=== PATIENT | female | born 1970 | race Caucasian/White ===

== ENCOUNTER 2017-03-15 18:51 | Emergency (ER) | payer SELFPAY ==
[~2017-03-15] VITALS: Ht 160 cm; Wt 63.0 kg
[~2017-03-15 18:51] MED LIST: ACET-141 PO; CEPH-443 PO; CIPR500T4 PO; CYCL-319 PO; DICY10CA60 PO; DOCU-144 PO; HYDR-906 PO; HYDR25SU24 PR; PHEN-537 PO; PHEN-538 PO; POLY17PO6 PO
[2017-03-15 18:55] VITALS: Ht 160 cm; Wt 63.0 kg
--- NOTE | 2017-03-15 19:33 | ERD ---
ER Documentation Chief Complaint Date/Time DATE: 03/15/17 TIME: 19:32 Chief Complaint painful urination x 3 days HPI 46-year-old female complains of painful burning urination, and vaginal discomfort for the past 3 days. She states it has been on and off, itching and slight burning sensation when she urinates. Patient states that she is sexually active with her , however would like to be checked for sexually transmitted diseases. She denies vaginal bleeding, pelvic pain. She denies fevers or chills. Patient denies abdominal pain. ROS All systems reviewed and are negative except as per history of present illness. Medications Home Meds Active Scripts Cephalexin* (Keflex*) 500 Mg Capsule, 500 MG PO TID for 5 Days, CAP Prov:VANESSA SOLIZ PA-C 03/15/17 Fluconazole* (Diflucan*) 150 Mg Tablet, 150 MG PO ONCE, #2 TAB Prov:VANESSA SOLIZ PA-C 03/15/17 Cephalexin* (Keflex*) 500 Mg Capsule, 500 MG PO QID for 7 Days, CAP Prov:VANESSA SOLIZ PA-C 05/20/16 Phenazopyridine Hcl* (Pyridium*) 100 Mg Tab, 100 MG PO TID Y for URINARY PAIN, # 8 TAB Prov:VANESSA SOLIZ PA-C 05/20/16 Dicyclomine Hcl* (Bentyl*) 10 Mg Capsule, 10 MG PO QID, #30 CAP Prov:NAWAF GOMEZ PA-C 11/17/15 Polyethylene Glycol* (Miralax*) 17 Gm Powd.pack, 17 GM PO DAILY, #7 Prov:NAWAF GOMEZ PA-C 11/17/15 Docusate Sodium* (Colace*) 100 Mg Capsule, 100 MG PO TID, #30 CAP Prov:NAWAF GOMEZ PA-C 11/17/15 Hydrocodone Bit-Acetaminophen ([place]) 5-325 Mg Tablet, 1 TAB PO Q4H Y for PAIN, #14 TAB Prov:LESLIE MCCARTHY MD 07/28/15 Ciprofloxacin Hcl* (Ciprofloxacin Hcl*) 500 Mg Tablet, 500 MG PO BID for 5 Days , TAB Prov:LESLIE MCCARTHY MD 07/28/15 Phenazopyridine Hcl* (Pyridium*) 200 Mg Tab, 200 MG PO TID, #6 TAB Prov:LESLIE MCCARTHY MD 07/28/15 Acetaminophen* (Acetaminophen*) 500 MG Extra Strength Tablet, 500 MG PO Q4H for PAIN, #30 TAB Prov:ANKUSH ARELLANO NP 03/07/15 Cyclobenzaprine Hcl* (Cyclobenzaprine Hcl*) 10 Mg Tablet, 5 MG PO TID Y for MUSCLE SPASMS, #30 TAB Prov:ANKUSH ARELLANO NP 03/07/15 Docusate Sodium* (Colace*) 100 Mg Capsule, 100 MG PO BID, #60 Prov:ANKUSH ARELLANO NP 03/07/15 Hydrocortisone Acetate* (Anusol-HC*) 25 Mg/Supp.rect Supp.rect, 1 SUPP SD BID Y for HEMORROID PAIN/ITCHING, #20 SUPP.RECT Prov:ANKUSH ARELLANO NP 03/07/15 Allergies Allergies: Coded Allergies: aspirin (Verified Allergy, Mild, 03/15/17) PMhx/Soc History of Surgery: No Anesthesia Reaction: No Hx Neurological Disorder: No Hx Respiratory Disorders: No Hx Cardiac Disorders: No Hx Psychiatric Problems: No Hx Miscellaneous Medical Probl: No Hx Alcohol Use: No Hx Substance Use: No Hx Tobacco Use: No Physical Exam Vitals Vital Signs Date Time Temp Pulse Resp B/P Pulse Ox O2 Delivery O2 Flow Rate FiO2 03/15/17 20:07 98.2 71 18 121/74 98 Room Air 03/15/17 18:55 99.0 79 20 136/83 98 Physical Exam General: Well-developed, well-nourished. The patient appears in no acute distress. HEENT: Head is normocephalic, atraumatic. No scleral icterus. Neck: Supple. Nontender. Lungs: Clear to auscultation. Normal air movement. Heart: Regular rate and rhythm. S1 and S2 are normal. No murmurs, gallops, or rubs. Abdomen: Soft, nontender, nondistended. Bowel sounds are normoactive. : [place] chees[employer] he is discharged, there is no CMT tenderness, no masses. Extremities: No clubbing or cyanosis. Normal pulses. Moving extremities x 4. No weakness. Neurologic: Alert and oriented 3. No focal deficits. Skin: Normal turgor. No rash or lesions. Results 24 hrs Urine is negative Laboratory Tests Test 03/15/17 19:42 Bedside Urine pH (LAB) 7.0 Bedside Urine Protein (LAB) Negative Bedside Urine Glucose (UA) Negative Bedside Urine Ketones (LAB) Negative Bedside Urine Blood Trace-intact Bedside Urine Nitrite (LAB) Negative Bedside Urine Leukocyte Esterase (L Trace Procedures/MDM MDM: 46-year-old female comes in with vaginitis, there is definite yeast vaginitis seen on examination however no evidence of PID, systemic complaints or fever related to this. She does also complain of burning with urination, will be given Keflex and 2 doses of Diflucan. I sent a genital culture to rule out gonorrhea and chlamydia, cervicitis per Departure Diagnosis: Primary Impression: Vaginitis Additional Impression: UTI (urinary tract infection) Condition: Good VANESSA SOLIZ PA-C Mar 15, 2017 19:33
[2017-03-15 19:39] LABS: URINE BLOOD (Dip) POC Trace-intact (NEGATIVE)
[2017-03-15] MEDS ORDERED: FLUC150T17 PO (19:50)
[2017-03-15] MEDS ORDERED: CEPH-443 PO (19:50)
[2017-03-15 20:07] VITALS: BP 121/74; PULSE 71; RESP 18; TEMP 98.2
== END 2017-03-15 20:09 | disposition home or self-care (01) ==
LOC: FTE 18:51
DX: N76.0 Acute vaginitis (principal); N39.0 Urinary tract infection, site not specified; R10.2 Pelvic and perineal pain
CPT/HCPCS: 81003; 87081; 99284

== ENCOUNTER 2017-04-02 11:13 | Emergency (ER) | payer OTHER ==
[~2017-04-02] VITALS: Ht 160 cm; Wt 78.0 kg
[~2017-04-02 11:13] MED LIST changes: +FLUC150T17 PO
[2017-04-02 11:23] VITALS: Ht 160 cm; Wt 78.0 kg
--- NOTE | 2017-04-02 12:01 | ERD ---
ER Documentation Chief Complaint Date/Time DATE: 04/02/17 TIME: 11:59 Chief Complaint LUMP/CYST? ON NECK X 6 MOS HPI Patient is a 46-year-old female with no past medical history who presents to the ED with a mass on her neck that has progressively gotten larger in the last 6 months. She denies pain but states that she has a change in voice. Denies difficulty breathing or speaking or swallowing. States that she went to her primary care provider regarding this issue and was given referral however she states that the referrals in 1 month and she would like to get imaging studies here. Denies history of thyroid disease. No other complaints. ROS All systems reviewed and are negative except as per history of present illness. Medications Home Meds Active Scripts Cephalexin* (Keflex*) 500 Mg Capsule, 500 MG PO TID for 5 Days, CAP Prov:VANESSA SOLIZ PA-C 03/15/17 Fluconazole* (Diflucan*) 150 Mg Tablet, 150 MG PO ONCE, #2 TAB Prov:VANESSA SOLIZ PA-C 03/15/17 Cephalexin* (Keflex*) 500 Mg Capsule, 500 MG PO QID for 7 Days, CAP Prov:VANESSA SOLIZ PA-C 05/20/16 Phenazopyridine Hcl* (Pyridium*) 100 Mg Tab, 100 MG PO TID Y for URINARY PAIN, # 8 TAB Prov:VANESSA SOLIZ PA-C 05/20/16 Dicyclomine Hcl* (Bentyl*) 10 Mg Capsule, 10 MG PO QID, #30 CAP Prov:NAWAF GOMEZ PA-C 11/17/15 Polyethylene Glycol* (Miralax*) 17 Gm Powd.pack, 17 GM PO DAILY, #7 Prov:NAWAF GOMEZ PA-C 11/17/15 Docusate Sodium* (Colace*) 100 Mg Capsule, 100 MG PO TID, #30 CAP Prov:NAWAF GOMEZ PA-C 11/17/15 Hydrocodone Bit-Acetaminophen ([place]) 5-325 Mg Tablet, 1 TAB PO Q4H Y for PAIN, #14 TAB Prov:LESLIE MCCARTHY MD 07/28/15 Ciprofloxacin Hcl* (Ciprofloxacin Hcl*) 500 Mg Tablet, 500 MG PO BID for 5 Days , TAB Prov:LESLIE MCCARTHY MD 07/28/15 Phenazopyridine Hcl* (Pyridium*) 200 Mg Tab, 200 MG PO TID, #6 TAB Prov:LESLIE MCCARTHY MD 07/28/15 Acetaminophen* (Acetaminophen*) 500 MG Extra Strength Tablet, 500 MG PO Q4H for PAIN, #30 TAB Prov:ANKUSH ARELLANO NP 03/07/15 Cyclobenzaprine Hcl* (Cyclobenzaprine Hcl*) 10 Mg Tablet, 5 MG PO TID Y for MUSCLE SPASMS, #30 TAB Prov:ANKUSH ARELLANO NP 03/07/15 Docusate Sodium* (Colace*) 100 Mg Capsule, 100 MG PO BID, #60 Prov:ANKUSH ARELLANO NP 03/07/15 Hydrocortisone Acetate* (Anusol-HC*) 25 Mg/Supp.rect Supp.rect, 1 SUPP NE BID Y for HEMORROID PAIN/ITCHING, #20 SUPP.RECT Prov:ANKUSH ARELLANO NP 03/07/15 Allergies Allergies: Coded Allergies: aspirin (Verified Allergy, Mild, 04/02/17) PMhx/Soc Medical and Surgical Hx: pt denies Surgical Hx History of Surgery: No Anesthesia Reaction: No Hx Neurological Disorder: No Hx Respiratory Disorders: No Hx Cardiac Disorders: No Hx Psychiatric Problems: No Hx Miscellaneous Medical Probl: No Hx Alcohol Use: No Hx Substance Use: No Hx Tobacco Use: No Smoking Status: Never smoker FmHx Family History: No coronary disease, No diabetes, No other Physical Exam Vitals Vital Signs Date Time Temp Pulse Resp B/P Pulse Ox O2 Delivery O2 Flow Rate FiO2 04/02/17 11:23 98.1 99 18 132/90 100 Physical Exam GENERAL: Well-developed, well-nourished female. Appears in no acute distress. HEAD: Normocephalic, atraumatic. EYES: Pupils are equally reactive bilaterally. EOMs grossly intact. No conjunctival erythema. ENT: Moist mucous membranes. No uvula deviation. No kissing tonsils. No exudates. Mobile mass on the right side of the thyroid that moves with swallowing. Nontender NECK: Supple. No lymphadenopathy or thyromegaly. No meningismus. negative kernig. negative brudinski. LUNG: Clear to auscultation bilaterally. No rhonchi, wheezing, rales or coarse breath sounds. HEART: Regular rate and rhythm. No murmurs, rubs or gallops. NEUROLOGIC: Alert and oriented. Moving all four extremities. 5/5 strength in all extremities. Normal speech. Steady gait. SKIN: Normal color. Warm and dry. No rashes or lesions. Capillary refill < 2 seconds Results 24 hrs Laboratory Tests Test 04/02/17 11:59 Free Thyroxine Index 2.97ug/ml Thyroxine (T4) 8.9ug/dl Triiodothyronine (T3) Uptake 33.4% Procedures/MDM ER COURSE: I kept the patient and/or family informed of laboratory and diagnostic imaging results throughout the emergency room course. IMAGING STUDIES [place] [id number] Radiology Main Line: [phone] DIAGNOSTIC IMAGING REPORT Patient: EVERARDO ANN : 1970 Age: 46 Sex: F MR #: [id number] DOS: 04/02/17 1149 Ordering MD: VERN HUSTON PA-C Location: [facility] Room/Bed: PROCEDURE: US Thyroid. CLINICAL INDICATION: Thyroid nodule. TECHNIQUE: Transverse and sagittal imaging of the thyroid gland was performed with a high frequency linear array transducer. Color-flow interrogation was performed as well. The images were reviewed on a PACS workstation. COMPARISON: None available. FINDINGS: The right lobe of the thyroid gland measures 4.6 x 1.6 x 2.0 cm. The left lobe of the thyroid gland measures 4.9 x 1.6 x 2.1 cm. The isthmus measures 6.2 mm thickness. There is a primarily cystic nodule with scattered echogenic components measuring 10 mm in the isthmus. There is an isoechoic 1.7 x 1.5 cm solid nodule at the midportion of the right thyroid lobe and a 10 mm mildly hypoechoic solid nodule measuring 10 mm at the lower pole left thyroid lobe. There is a 1.5 x 1.2 x 1 cm heterogeneous solid nodule with internal calcifications at the upper portion of the left thyroid lobe and a 1.2 cm mildly hypoechoic solid nodule at the lower portion of the left thyroid lobe. IMPRESSION: 1. Bilateral thyroid nodules, with dominant solid nodules at the midportion of the right thyroid lobe and upper portion of the left thyroid lobe. Ultrasound- guided FNA of both dominant nodules is recommended. RPTAT: GG .Ethan Stein MD, MD Date Time Electronically viewed and signed by .Ethan Stein MD, MD on 04/02/2017 13:38 .P/ CC: VERN HUSTON PA-C LABORATORY STUDIES Thyroid labs within normal limits MEDICAL DECISION MAKING: This is a 46-year-old female who presents with mass on her neck 6 months. Vital signs were reviewed. Patient is afebrile. Patient is not hypoxic. I consulted with my supervising physician Dr. MCCARTHY who came and examined the patient at bedside and agrees for medical decision making and discharge plans. Patient has bilateral thyroid nodules. I explained all laboratory studies and imaging studies to patient. Patient needs to follow-up with specialist for further evaluation such as a fine-needle aspiration and biopsy. Patient does not show signs of respiratory distress. Low suspicion for sepsis. Low suspicion for abscess or cellulitis. Low suspicion for deep space infection DISCHARGE: At this time, patient is stable for discharge and outpatient management with no new complaints during the ER course. 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 Patient will be discharged home with instructions to recheck for new or worsening symptoms such as fever, nausea, weakness, LOC and to follow up with primary care in the next 1-2 days. Patient was advised to return to the ER for any new or worsening symptoms. Plan was discussed and patient and/or family understands and agrees. Home instructions were given. Departure Diagnosis: Primary Impression: Thyroid nodule Condition: Stable VERN HUSTON PA-C Apr 02, 2017 12:01
[2017-04-02 12:47] LABS: T3 UPTAKE 33.4 % (23.5-40.5)
--- NOTE | 2017-04-02 13:39 | RADRPT ---
PROCEDURE: US Thyroid. CLINICAL INDICATION: Thyroid nodule. TECHNIQUE: Transverse and sagittal imaging of the thyroid gland was performed with a high frequency linear arra y transducer. Color-flow interrogation was performed as well. The images were reviewed on a PACS [employer]. COMPARISON: None available. FINDINGS: The right lobe of the thyroid gland measures 4.6 x 1.6 x 2.0 cm. The left lobe of the thyroid gland measures 4.9 x 1.6 x 2.1 cm. The isthmus measures 6.2 mm thickness. There is a primarily cystic nodule with scattered echogenic components measuring 10 mm in the isthmu s. There is an isoechoic 1.7 x 1.5 cm solid nodule at the midportion of the right thyroid lobe and a 10 mm mildly hypoechoic solid nodule measuring 10 mm at the lower pole left thyroid lobe. There i s a 1.5 x 1.2 x 1 cm heterogeneous solid nodule with internal calcifications at the upper portion of the left thyroid lobe and a 1.2 cm mildly hypoechoic solid nodule at the lower portion of the left thyroid lobe. IMPRESSION: 1. Bilateral thyroid nodules, with dominant solid nodules at the midportion of the right thyroid lo be and upper portion of the left thyroid lobe. Ultrasound-guided FNA of both dominant nodules is re commended. RPTAT: GG .Ethan Stein MD, Date Time Electronically viewed and signed by .Ethan Stein MD, MD on 04/02/2017 13:38 .P/
[2017-04-02 14:30] VITALS: BP 128/75; PULSE 74; RESP 19; TEMP 98.3
== END 2017-04-02 14:31 | disposition home or self-care (01) ==
LOC: FTE 11:13
DX: E04.1 Nontoxic single thyroid nodule (principal)
CPT/HCPCS: 36415; 76536; 84436; 84479; Z7502

== ENCOUNTER 2017-07-12 18:22 | Emergency (ER) | payer OTHER ==
[~2017-07-12] VITALS: Ht 162.6 cm; Wt 62.0 kg
[2017-07-12 18:26] VITALS: Ht 162.6 cm; Wt 62.0 kg
[2017-07-12 18:53] VITALS: BP 130/83; PULSE 79; RESP 18
[2017-07-12] MEDS ORDERED: morphine 4 MG/ML VIAL IV STA (19:40)
[2017-07-12 20:06] LABS: BASOPHILS % 0.4 % (0.0-2.0); EOSINOPHILS # 0.1 10^3/ul (0.0-0.5); EOSINOPHILS % 1.8 % (0.0-7.0); HEMATOCRIT 38.5 % (37.0-47.0); LYMPHOCYTES # 2.6 10^3/ul (0.8-2.9); LYMPHOCYTES % 38.6 % (15.0-51.0); MEAN CORPUSCULAR HEMOGLOBIN 32.6 pg (29.0-33.0); MEAN CORPUSCULAR HGB CONC 33.8 g/dl (32.0-37.0); MEAN CORPUSCULAR VOLUME 96.5 fl (82.0-101.0); MEAN PLATELET VOLUME 9.3 fl (7.4-10.4); MONOCYTE # 0.4 10^3/ul (0.3-0.9); MONOCYTES % 5.7 % (0.0-11.0); NEUTROPHIL # 3.6 10^3/ul (1.6-7.5); NEUTROPHILS % 53.4 % (39.0-77.0); PLATELET COUNT 345 10^3/UL (140-415); RED BLOOD COUNT 3.99 10^6/ul (4.20-5.40); RED CELL DISTRIBUTION WIDTH 13.6 % (11.5-14.5); WHITE BLOOD COUNT 6.8 10^3/ul (4.8-10.8)
[2017-07-12 20:28] LABS: CALCIUM 9.8 mg/dl (8.4-10.2); CREATININE 0.76 mg/dl (0.44-1.00); POTASSIUM 4.2 mmol/L (3.5-5.1)
[2017-07-12] MEDS ORDERED: SOD CHLORIDE 0.9% 100 ML ONE (20:58)
[2017-07-12] MEDS ORDERED: IOHEXOL 300MG/ML 150 ML BTL ONE (20:58)
--- NOTE | 2017-07-12 21:46 | RADRPT ---
PROCEDURE: CT neck with intravenous contrast CLINICAL INDICATION: Difficulty swallowing, anterior neck pain. COMPARISON: Ultrasound 04/02/2017. CT 02/03/2014 and 01/27/2014. TECHNIQUE: CT of the neck was performed following the uneventful administration of80 mL Omnipaque- 300 intravenous contrast. Axial images were obtained through the neck with multiplanar reformats. DOSE: The estimated administered radiation dose was CTDI vol = 8 mGy. DLP = 206 mGy-cm. One or more of the following dose reduction techniques were used: automated exposure control, adjustment of the mA and/or kV according to patient size, or use of iterative reconstruction technique. FINDINGS: Soft tissues: Normal. No suspicious enhancement. Aerodigestive tract: Artifact from dental hardware limits evaluation of the oral cavity. No primary lesion identified within the nasopharynx, oropharynx, hypopharynx, larynx, and proximal trachea. Salivary glands: Normal. Thyroid: Thyroidectomy. Lymph nodes: There are non-specific scattered sub-centimeter lymph nodes in the neck bilaterally. A left level II lymph node measures 21 x 11 mm (series 3, image 36). A right level II node measures 19 x 7 mm (series 3, image 33). Vessels: Patent. Bones: Mild degenerative changes at C5-C6. Visualized lung apices: Clear. Visualized brain parenchyma: Normal. Additional comment: Mild mucosal thickening within the left maxillary sinus. Nasal septal deviation to the right. IMPRESSION: Mildly enlarged lymph nodes in the level II neck bilaterally. RPTAT: HL[facility] Physician Monica Date Time Electronically viewed and signed by Physician Monica on 07/12/2017 21:46 LG/
[2017-07-12] MEDS ORDERED: FAMO-96 PO (22:40)
[2017-07-12] MEDS ORDERED: LIDOCAINE/MYLANTA 40 ML BTL PO ONE (23:00)
[2017-07-12] MEDS ORDERED: FAMOTIDINE 20 MG TAB PO ONE (23:00)
--- NOTE | 2017-07-12 23:12 | ERD ---
ER Documentation Chief Complaint Date/Time DATE: 07/12/17 TIME: 23:07 Chief Complaint FEELS SOB , DIFF SWALLOWING X 2 HRS HPI This is a 47-year-old female presenting to the emergency department with difficulty swallowing and burning sensation to throat 2 hours. Patient states symptoms worsen after eating. Patient states last night she had a low-grade temperature of 100F and took Tylenol at home. Patient had a recent thyroidectomy about [address] Montiel and patient is concerned about complication from surgery. Denies any shortness of breath or difficulty breathing. No chest pain. No chest pressure. ROS All systems reviewed and are negative except as per history of present illness. Medications Home Meds Active Scripts Famotidine* (Pepcid*) 20 Mg Tablet, 20 MG PO BID for 4 Days, TAB Prov:RENETTA ALEXANDER NP 07/12/17 Cephalexin* (Keflex*) 500 Mg Capsule, 500 MG PO TID for 5 Days, CAP Prov:VANESSA SOLIZ PA-C 03/15/17 Fluconazole* (Diflucan*) 150 Mg Tablet, 150 MG PO ONCE, #2 TAB Prov:VANESSA SOLIZ PA-C 03/15/17 Cephalexin* (Keflex*) 500 Mg Capsule, 500 MG PO QID for 7 Days, CAP Prov:VANESSA SOLIZ PA-C 05/20/16 Phenazopyridine Hcl* (Pyridium*) 100 Mg Tab, 100 MG PO TID Y for URINARY PAIN, # 8 TAB Prov:VANESSA SOLIZ PA-C 05/20/16 Dicyclomine Hcl* (Bentyl*) 10 Mg Capsule, 10 MG PO QID, #30 CAP Prov:NWAAF GOMEZ PA-C 11/17/15 Polyethylene Glycol* (Miralax*) 17 Gm Powd.pack, 17 GM PO DAILY, #7 Prov:NAWAF GOMEZ PA-C 11/17/15 Docusate Sodium* (Colace*) 100 Mg Capsule, 100 MG PO TID, #30 CAP Prov:NAWAF GOMEZ PA-C 11/17/15 Hydrocodone Bit-Acetaminophen ([place]) 5-325 Mg Tablet, 1 TAB PO Q4H Y for PAIN, #14 TAB Prov:LESLIE MCCARTHY MD 07/28/15 Ciprofloxacin Hcl* (Ciprofloxacin Hcl*) 500 Mg Tablet, 500 MG PO BID for 5 Days , TAB Prov:LESLEI MCCARTHY MD 07/28/15 Phenazopyridine Hcl* (Pyridium*) 200 Mg Tab, 200 MG PO TID, #6 TAB Prov:LESLIE MCCARTHY MD 07/28/15 Acetaminophen* (Acetaminophen*) 500 MG Extra Strength Tablet, 500 MG PO Q4H for PAIN, #30 TAB Prov:ANKUSH ARELLANO NP 03/07/15 Cyclobenzaprine Hcl* (Cyclobenzaprine Hcl*) 10 Mg Tablet, 5 MG PO TID Y for MUSCLE SPASMS, #30 TAB Prov:ANKUSH ARELLANO NP 03/07/15 Docusate Sodium* (Colace*) 100 Mg Capsule, 100 MG PO BID, #60 Prov:ANKUSH ARELLANO NP 03/07/15 Hydrocortisone Acetate* (Anusol-HC*) 25 Mg/Supp.rect Supp.rect, 1 SUPP RI BID Y for HEMORROID PAIN/ITCHING, #20 SUPP.RECT Prov:ANKUSH ARELLANO NP 03/07/15 Allergies Allergies: Coded Allergies: aspirin (Verified Allergy, Mild, 04/02/17) PMhx/Soc Medical and Surgical Hx: pt denies Medical Hx History of Surgery: Yes (APPENDECTOMY, THYROIDECTOMY 07/14) Anesthesia Reaction: No Hx Neurological Disorder: No Hx Respiratory Disorders: No Hx Cardiac Disorders: No Hx Psychiatric Problems: No Hx Miscellaneous Medical Probl: No Hx Alcohol Use: No Hx Substance Use: No Hx Tobacco Use: No Smoking Status: Never smoker Physical Exam Vitals Vital Signs Date Time Temp Pulse Resp B/P Pulse Ox O2 Delivery O2 Flow Rate FiO2 07/12/17 18:53 79 18 130/83 99 Room Air 07/12/17 18:26 99.7 100 18 177/123 98 Physical Exam Const: No acute distress, alert Head: Atraumatic Eyes: Normal Conjunctiva ENT: Normal External Ears, Nose and Mouth. No erythema or exudate posterior pharynx. Neck: Full range of motion..~ No meningismus. Resp: Clear to auscultation bilaterally. No wheezing, rhonchi or crackles. No stridor or labored breathing. Cardio: Regular rate and rhythm, no murmurs Abd: Soft, non tender, non distended. Normal bowel sounds Skin: No petechiae or rashes. There is a 1.5-2 inch horizontal surgical laceration to anterior neck. No surrounding erythema, warmth or drainage. No open areas. Edges are approximated. Back: No midline or flank tenderness Ext: No cyanosis, or edema Neur: Awake and alert Psych: Normal Mood and Affect Result Diagram: 07/12/17199907/12/171999 Results 24 hrs Laboratory Tests Test 07/12/17 20:00 White Blood Count 6.810^3/ul Red Blood Count 3.9910^6/ul Hemoglobin 13.0g/dl Hematocrit 38.5% Mean Corpuscular Volume 96.5fl Mean Corpuscular Hemoglobin 32.6pg Mean Corpuscular Hemoglobin Concent 33.8g/dl Red Cell Distribution Width 13.6% Platelet Count 29141^3/UL Mean Platelet Volume 9.3fl Neutrophils % 53.4% Lymphocytes % 38.6% Monocytes % 5.7% Eosinophils % 1.8% Basophils % 0.4% Nucleated Red Blood Cells % 0.0/100WBC Neutrophils # 3.610^3/ul Lymphocytes # 2.610^3/ul Monocytes # 0.410^3/ul Eosinophils # 0.110^3/ul Basophils # 0.010^3/ul Nucleated Red Blood Cells # 0.010^3/ul Sodium Level 142mmol/L Potassium Level 4.2mmol/L Chloride Level 104mmol/L Carbon Dioxide Level 28mmol/L Anion Gap 14 Blood Urea Nitrogen 14mg/dl Creatinine 0.76mg/dl Glucose Level 99mg/dl Calcium Level 9.8mg/dl Current Medications Medications (Trade) Dose Ordered Sig/Pardeep Route PRN Reason Start Time Stop Time Status Last Admin Dose Admin Morphine Sulfate (morphine) 4 mg ONCE STAT IV 07/12/17 19:40 07/12/17 19:44 DC 07/12/17 19:55 IV Flush 10 ml 10 ml STK-MED ONCE .ROUTE 07/12/17 20:58 07/12/17 20:59 DC Sodium Chloride (NS) 100 ml @ ud STK-MED ONCE .ROUTE 07/12/17 20:58 07/12/17 20:59 DC Iohexol (Omnipaque 300mg/ ml) 150 ml STK-MED ONCE .ROUTE 07/12/17 20:58 07/12/17 20:59 DC Miscellaneous Medication (Gi Cocktail (2)) 40 ml ONCE ONCE PO 07/12/17 23:00 07/12/17 23:00 DC 07/12/17 22:47 Famotidine (Pepcid) 20 mg ONCE ONCE PO 07/12/17 23:00 07/12/17 23:00 DC 07/12/17 22:47 Procedures/[place] [id number] Radiology Main Line: [phone] DIAGNOSTIC IMAGING REPORT Patient: EVERARDO ANN : 1970 Age: 47 Sex: F MR #: [id number] DOS: 07/12/171939 Ordering MD: RENETTA CAST NP Location: [facility] Room/Bed: PROCEDURE: CT neck with intravenous contrast CLINICAL INDICATION: Difficulty swallowing, anterior neck pain. COMPARISON: Ultrasound 04/02/2017. CT 02/03/2014 and 01/27/2014. TECHNIQUE: CT of the neck was performed following the uneventful administration of80 mL Omnipaque-300 intravenous contrast. Axial images were obtained through the neck with multiplanar reformats. DOSE: The estimated administered radiation dose was CTDI vol = 8 mGy. DLP = 206 mGy-cm. One or more of the following dose reduction techniques were used: automated exposure control, adjustment of the mA and/or kV according to patient size, or use of iterative reconstruction technique. FINDINGS: Soft tissues: Normal. No suspicious enhancement. Aerodigestive tract: Artifact from dental hardware limits evaluation of the oral cavity. No primary lesion identified within the nasopharynx, oropharynx, hypopharynx, larynx, and proximal trachea. Salivary glands: Normal. Thyroid: Thyroidectomy. Lymph nodes: There are non-specific scattered sub-centimeter lymph nodes in the neck bilaterally. A left level II lymph node measures 21 x 11 mm (series 3, image 36). A right level II node measures 19 x 7 mm (series 3, image 33). Vessels: Patent. Bones: Mild degenerative changes at C5-C6. Visualized lung apices: Clear. Visualized brain parenchyma: Normal. Additional comment: Mild mucosal thickening within the left maxillary sinus. Nasal septal deviation to the right. IMPRESSION: Mildly enlarged lymph nodes in the level II neck bilaterally. MDM: This is a 39-year-old female presenting to the emergency department with difficulty swallowing and burning sensation to throat 2 hours. Patient states symptoms worsen after eating. Since patient had a recent thyroidectomy a CT neck with contrast was done. CT reviewed by radiologist as mildly enlarged lymph nodes in the level 2 neck bilaterally. CBC shows no significant anemia or infection. CMP shows no significant electrolyte imbalance. Patient given morphine 4 mg IV while in the ED. Upon reassessment, patient states pain has improved. Patient describes pain as burning sensation in her throat worse with eating. Patient's vital signs are stable. Patient is afebrile. Patient shows no signs or symptoms of respiratory distress. Patient is talking in complete sentences and swallowing without difficulty. No drooling. Vital signs are stable. Differential diagnosis includes but not limited to acute ID, pancreatitis, peptic ulcer disease, GERD, gastritis, cholecystitis, cholelithiasis, choledocholithiasis and gastroparesis and functional dyspepsia. I doubt acute ID due to patient's normal vital signs, patient denies chest pain , shortness of breath, difficulty breathing or heart palpitations. I doubt pancreatitis due to patient's normal lab results. Patient is appropriate for outpatient management and instructed to follow-up with primary care provider in the next 2-3 days for reassessment. Return to ED for any high fever, chest pain, difficulty breathing, shortness breath, wheezing , vomiting, diarrhea, abdominal pain or any new or worsening symptoms. Patient verbalizes understanding. All questions answered at discharge. Disclaimer: Inadvertent spelling and grammatical errors are likely due to EHR/ dictation software use and do not reflect on the overall quality of patient care. Also, please note that the electronic time recorded on this note does not necessarily reflect the actual time of the patient encounter. Departure Diagnosis: Primary Impression: GERD (gastroesophageal reflux disease) Esophagitis presence: esophagitis presence not specified Qualified Code: K21.9 - Gastroesophageal reflux disease, esophagitis presence not specified Condition: Stable Patient Instructions: Gerd (Adult), Gastritis Vs. Ulcer Additional Instructions: Llame al doctor MAANA y jesse adina MAXI PARA DENTRO DE 2-3 NUNN.Dgale a la secretaria que nosotros le instruimos hacer esta maxi.Avise o llame si espinoza condicin se empeora antes de la maxi. Regresa aqui si peor o no mejor. Vuelva a Ed para cualquier fiebre magda, dolor en el pecho, dificultad para respirar, respiracin entrecortada, sibilancias, vmitos, diarrea, dolor abdominal o cualquier sntoma nuevo o empeoramiento. RENETTA ALEXANDER NP Jul 12, 2017 23:12
== END 2017-07-12 22:55 | disposition home or self-care (01) ==
LOC: FTE 18:22
DX: K21.9 Gastro-esophageal reflux disease without esophagitis (principal)
CPT/HCPCS: 70491; 80048; 85025; 96374; J2270; Q9967; Z7502; Z7610

== ENCOUNTER 2017-07-21 07:48 | Emergency (ER) | payer OTHER ==
[~2017-07-21] VITALS: Ht 160 cm; Wt 63.0 kg
[~2017-07-21 07:48] MED LIST changes: +FAMO-96 PO
[2017-07-21 07:51] VITALS: Ht 160 cm; Wt 63.0 kg
[2017-07-21] MEDS ORDERED: SOD CHLORIDE 0.9% 1,000 ML IV STA (08:37)
[2017-07-21 09:13] LABS: BASOPHILS % 0.4 % (0.0-2.0); EOSINOPHILS # 0.1 10^3/ul (0.0-0.5); EOSINOPHILS % 2.5 % (0.0-7.0); HEMATOCRIT 37.4 % (37.0-47.0); HEMOGLOBIN 12.6 g/dl (12.0-16.0); LYMPHOCYTES # 1.9 10^3/ul (0.8-2.9); LYMPHOCYTES % 39.6 % (15.0-51.0); MEAN CORPUSCULAR HEMOGLOBIN 32.6 pg (29.0-33.0); MEAN CORPUSCULAR HGB CONC 33.7 g/dl (32.0-37.0); MEAN CORPUSCULAR VOLUME 96.9 fl (82.0-101.0); MEAN PLATELET VOLUME 9.4 fl (7.4-10.4); MONOCYTE # 0.3 10^3/ul (0.3-0.9); MONOCYTES % 5.5 % (0.0-11.0); NEUTROPHIL # 2.4 10^3/ul (1.6-7.5); NEUTROPHILS % 51.8 % (39.0-77.0); PLATELET COUNT 314 10^3/UL (140-415); RED BLOOD COUNT 3.86 10^6/ul (4.20-5.40); RED CELL DISTRIBUTION WIDTH 14.2 % (11.5-14.5); WHITE BLOOD COUNT 4.7 10^3/ul (4.8-10.8)
[2017-07-21 09:27] LABS: ADD UMIC YES; UR ASCORBIC ACID NEGATIVE (NEGATIVE); UR BILIRUBIN (Dip) NEGATIVE (NEGATIVE); UR BLOOD (Dip) 1+ mg/dL (NEGATIVE); UR CLARITY CLEAR (CLEAR); UR COLOR STRAW (YELLOW); UR GLUCOSE (Dip) NEGATIVE (NEGATIVE); UR KETONES (Dip) NEGATIVE (NEGATIVE); UR LEUKOCYTE ESTERASE (Dip) NEGATIVE Leu/ul (NEGATIVE); UR NITRITE (Dip) NEGATIVE (NEGATIVE); UR RBC 1 /HPF (0-5); UR SPECIFIC GRAVITY (Dip) 1.008 (1.003-1.030); UR TOTAL PROTEIN (Dip) NEGATIVE (NEGATIVE); UR UROBILINOGEN (Dip) NEGATIVE (NEGATIVE)
[2017-07-21 09:28] LABS: ALBUMIN 4.5 g/dl (3.3-4.9); ALBUMIN/GLOBULIN RATIO 1.07; BILIRUBIN,INDIRECT 0.2 mg/dl (0-1.1); BILIRUBIN,TOTAL 0.2 mg/dl (0.2-1.3); CALCIUM 9.7 mg/dl (8.4-10.2); CREATININE 0.79 mg/dl (0.44-1.00); TOTAL PROTEIN 8.7 g/dl (6.1-8.1)
[2017-07-21 09:45] LABS: T3 UPTAKE 24.8 % (23.5-40.5)
[2017-07-21] MEDS ORDERED: ACETAMINOPHEN 325 MG TAB PO ONE (12:00)
[2017-07-21] MEDS ORDERED: LEVO100T87 PO (12:42)
[2017-07-21 13:00] VITALS: BP 128/74; PULSE 77; RESP 16
--- NOTE | 2017-07-21 16:37 | ERD ---
ER Documentation Chief Complaint Chief Complaint unable to sleep, feels weak HPI 47-year-old female patient with no significant ivzz-gewv-dvt female with a past medical history of status post total thyroidectomy 3 weeks ago presents to the ED complaining of feeling weakness and dizziness. States that her general surgeon was Dr. Conway. States that she has not able to obtain a prescription for levothyroxine. States that she has difficulty concentrating. Reports that her next endocrinology appointment is August 07, 2017. Denies any chest pain , shortness of breath, fever, chills, nausea, vomiting, diarrhea, abdominal pain. Denies any head or neck trauma. Denies any increased swelling, redness from the surgery site, purulent discharge or fever ROS All systems reviewed and are negative except as per history of present illness. Medications Home Meds Active Scripts Levothyroxine Sodium* (Levothyroxine Sodium*) 100 Mcg Tablet, 100 MCG PO BEFORE BREAKFAST, #30 TAB Prov:DAVID VILLA PA-C 07/21/17 Famotidine* (Pepcid*) 20 Mg Tablet, 20 MG PO BID for 4 Days, TAB Prov:RENETTA ALEXANDER NP 07/12/17 Cephalexin* (Keflex*) 500 Mg Capsule, 500 MG PO TID for 5 Days, CAP Prov:VANESSA SOLIZ PA-C 03/15/17 Fluconazole* (Diflucan*) 150 Mg Tablet, 150 MG PO ONCE, #2 TAB Prov:VANESSA SOLIZ PA-C 03/15/17 Cephalexin* (Keflex*) 500 Mg Capsule, 500 MG PO QID for 7 Days, CAP Prov:VANESSA SOLIZ PA-C 05/20/16 Phenazopyridine Hcl* (Pyridium*) 100 Mg Tab, 100 MG PO TID Y for URINARY PAIN, # 8 TAB Prov:VANESSA SOLIZ PA-C 05/20/16 Dicyclomine Hcl* (Bentyl*) 10 Mg Capsule, 10 MG PO QID, #30 CAP Prov:NAWAF GOMEZ PA-C 11/17/15 Polyethylene Glycol* (Miralax*) 17 Gm Powd.pack, 17 GM PO DAILY, #7 Prov:NAWAF GOMEZ PA-C 11/17/15 Docusate Sodium* (Colace*) 100 Mg Capsule, 100 MG PO TID, #30 CAP Prov:NAWAF GOMEZ PA-C 11/17/15 Hydrocodone Bit-Acetaminophen ([place]) 5-325 Mg Tablet, 1 TAB PO Q4H Y for PAIN, #14 TAB Prov:LESLIE MCCARTHY MD 07/28/15 Ciprofloxacin Hcl* (Ciprofloxacin Hcl*) 500 Mg Tablet, 500 MG PO BID for 5 Days , TAB Prov:LESLIE MCCARTHY MD 07/28/15 Phenazopyridine Hcl* (Pyridium*) 200 Mg Tab, 200 MG PO TID, #6 TAB Prov:LESLIE MCCARTHY MD 07/28/15 Acetaminophen* (Acetaminophen*) 500 MG Extra Strength Tablet, 500 MG PO Q4H for PAIN, #30 TAB Prov:ANKUSH ARELLANO NP 03/07/15 Cyclobenzaprine Hcl* (Cyclobenzaprine Hcl*) 10 Mg Tablet, 5 MG PO TID Y for MUSCLE SPASMS, #30 TAB Prov:ANKUSH ARELLANO NP 03/07/15 Docusate Sodium* (Colace*) 100 Mg Capsule, 100 MG PO BID, #60 Prov:ANKUSH ARELLANO NP 03/07/15 Hydrocortisone Acetate* (Anusol-HC*) 25 Mg/Supp.rect Supp.rect, [address] BID Y for HEMORROID PAIN/ITCHING, #20 SUPP.RECT Prov:ANKUSH ARELLANO NP 03/07/15 Allergies Allergies: Coded Allergies: aspirin (Verified Allergy, Mild, 04/02/17) PMhx/Soc History of Surgery: Yes (APPENDECTOMY, THYROIDECTOMY 07/14) Anesthesia Reaction: No Hx Neurological Disorder: No Hx Respiratory Disorders: No Hx Cardiac Disorders: No Hx Psychiatric Problems: No Hx Miscellaneous Medical Probl: No Hx Alcohol Use: No Hx Substance Use: No Hx Tobacco Use: No Smoking Status: Never smoker Physical Exam Vitals Vital Signs Date Time Temp Pulse Resp B/P Pulse Ox O2 Delivery O2 Flow Rate FiO2 07/21/17 13:00 77 16 128/74 99 Room Air 07/21/17 07:51 98.5 81 19 151/87 100 Physical Exam Const: Vzh-cqy-dagwaisjn, well-nourished. In no acute distress. Head: Atraumatic, normocephalic Eyes: Normal Conjunctiva without injection. No purulent discharge. PERRLA. EOMI ENT: Normal external ear. Ear canal without erythema. Tympanic membrane pearly connolly without effusion or bulging. Nasal canal clear with normal turbinates. Moist oropharynx without tonsillar exudates. Non-erythematous pharynx. Uvula midline. No drooling. No trismus. Neck: No cervical midline tenderness. Full range of motion. No meningismus. No cervical lymphadenopathy. No JVD. Resp: Clear to auscultation bilaterally. No wheezing, rhonchi, rales, or crackles. No accessory muscle use. No retractions. Cardio: Regular rate and rhythm. No murmurs, rubs or gallops. Abd: Soft, non tender, non distended. Normal bowel sounds. No palpable masses. No rebound tenderness. No guarding. Negative McBurney's Point. Negative Rivers's Sign. Skin: Normal skin turgor. No petechiae or rashes Back: No midline tenderness. No CVA tenderness. Ext: No cyanosis, or edema. Distal pulses intact bilaterally. Neur: Awake and alert. Normal gait. Normal coordination. Cranial Nerves II- VII intact. Normal finger to nose. Muscle strength 5/5. Sensation intact. Psych: Normal Mood and Affect Results 24 hrs Laboratory Tests Test 07/21/17 08:45 07/21/17 08:50 07/21/17 10:57 Urine Color STRAW Urine Clarity CLEAR Urine pH 7.0 Urine Specific [place] 1.008 Urine Ketones NEGATIVEmg/dL Urine Nitrite NEGATIVEmg/dL Urine Bilirubin NEGATIVEmg/dL Urine Urobilinogen NEGATIVEmg/dL Urine Leukocyte Esterase NEGATIVELeu/ul Urine Microscopic RBC 1/HPF Urine Microscopic WBC 0/HPF Urine Hemoglobin 1+mg/dL Urine Glucose NEGATIVEmg/dL Urine Total Protein NEGATIVEmg/dl White Blood Count 4.710^3/ul Red Blood Count 3.8610^6/ul Hemoglobin 12.6g/dl Hematocrit 37.4% Mean Corpuscular Volume 96.9fl Mean Corpuscular Hemoglobin 32.6pg Mean Corpuscular Hemoglobin Concent 33.7g/dl Red Cell Distribution Width 14.2% Platelet Count 64640^3/UL Mean Platelet Volume 9.4fl Neutrophils % 51.8% Lymphocytes % 39.6% Monocytes % 5.5% Eosinophils % 2.5% Basophils % 0.4% Nucleated Red Blood Cells % 0.0/100WBC Neutrophils # 2.410^3/ul Lymphocytes # 1.910^3/ul Monocytes # 0.310^3/ul Eosinophils # 0.110^3/ul Basophils # 0.010^3/ul Nucleated Red Blood Cells # 0.010^3/ul Sodium Level 144mmol/L Potassium Level 4.0mmol/L Chloride Level 106mmol/L Carbon Dioxide Level 28mmol/L Anion Gap 14 Blood Urea Nitrogen 13mg/dl Creatinine 0.79mg/dl Glucose Level 98mg/dl Calcium Level 9.7mg/dl Total Bilirubin 0.2mg/dl Direct Bilirubin 0.00mg/dl Indirect Bilirubin 0.2mg/dl Aspartate Amino Transf (AST/SGOT) 30IU/L Alanine Aminotransferase (ALT/SGPT) 52IU/L Alkaline Phosphatase 69IU/L Total Protein 8.7g/dl Albumin 4.5g/dl Globulin 4.20g/dl Albumin/Globulin Ratio 1.07 Lipase 102U/L Free Thyroxine Index 0.62ug/ml Thyroxine (T4) 2.5ug/dl Triiodothyronine (T3) Uptake 24.8% Thyroid Stimulating Hormone (TSH) 56.400MIU/L Free Thyroxine 0.19ng/dl Current Medications Medications (Trade) Dose Ordered Sig/Pardeep Route PRN Reason Start Time Stop Time Status Last Admin Dose Admin Sodium Chloride (NS) 1,000 ml @ 1,000 mls/hr Q1H STAT IV 07/21/17 08:37 07/21/17 09:36 DC 07/21/17 08:57 Acetaminophen (Tylenol Tab) 650 mg ONCE ONCE PO 07/21/17 12:00 07/21/17 12:01 DC 07/21/17 12:02 Procedures/MDM 47-year-old female patient with a past medical history of status post thyroidectomy presents to the ED complaining of feeling weak and dizzy. Patient is afebrile and nontoxic-appearing. This was discussed with my supervising physician, Dr. Salcedo. We agreed to obtain laboratory work at this time. It consisted of CBC, CMP, thyroid panel, free T4, TSH, UA, urine . Patient's pain and symptoms have improved after treatment with Tylenol. CBC: No leukocytosis. No e/o of systemic infection. No e/o anemia. CMP: No e/o severe acidosis, alkalosis, renal failure, diabetic ketoacidosis, liver disease Lipase within normal limits. Urine: No leukocyte esterase, no nitrites, no hematuria. Urine : Negative TSH 56.4 H Free T4 0.19 L EKG reviewed and interpreted by Dr. Salcedo Rate/Rhythm: [56 bpm, Normal Sinus Rhythm] No ectopy, no ST elevations, normal axis. QRS, ST, T-waves: [No changes consistent w/ acute ischemia] Impression: [No evidence of ischemia or arrhythmia] Patient has hypothyroidism secondary to complete thyroidectomy. Patient reports that she has had a difficult time obtaining thyroid medication from her general surgeon and primary care physician. Patient does have an appointment with food preparation worker on August 07, 2017. My supervising physician, Dr. Salcedo and I agreed to start patient on the lowest dosage of Levothyroxine and have the food preparation worker adjust dosage. Low suspicion for acute myocardial infarction, pneumothorax, pneumonia, cardiac tamponade, Hvaib-Tmemtfthg-Jlacw Syndrome, Brugada Syndrome, pulmonary embolism, AAA, aortic dissection, thoracic aortic dissection, endocarditis, pericarditis, cocaine-related ischemia , Boerhaave's syndrome, cardiac dysrhythmias,meningitis, intracranial bleed, seizure, stroke, TIA or other emergent conditions. Discharge medications: Levothyroxine 100 mcg once daily Follow up with an food preparation worker 2-3 days. Instructed patient to return to the ED sooner for any worsening symptoms. Patient's questions were answered. Patient understood and agreed with discharge plan. Patient discharged stable. Departure Diagnosis: Primary Impression: Thyroid condition Condition: Stable Patient Instructions: After Thyroidectomy Referrals: [facility] Usted se mott hecho un examen mdico de control que le indica que no est en adina condicin que requiera tratamiento urgente en el Departamento de Emergencia. Un estudio ms profundo y el tratamiento de espinoza condicin pueden esperar sin ningn riesgo hasta que usted sea atendida/o en el consultorio de espinoza mdico o adina cl flakito. Es responsabilidad suya arreglar adina maxi para el seguimiento del sherry. MANEJO DE CONDICIONES NO URGENTES EN EL FUTURO 1) Si usted tiene un mdico de atencin primaria: Usted debera llamar a espinoza mdico de atencin primaria antes de venir al departamento de emergencia. Despus de las horas de consultorio, espinoza doctor o espinoza asociado/a est disponible por telfono. El mdico o enfermero de jose en el servicio telefnico puede asesorarle por marcial medio para atender el problema, o sherry contrario se puede programar adina maxi. 2) Si usted no tiene un mdico de atencin primaria: Llame al mdico o clnica de referencia que aparece abajo cathie las horas de consultorio para hacer adina maxi para que le vean. CLINICAS: [facility] [phone] [facility] [phone] [address] [facility]. [facility] [phone] [facility] [facility] [phone] [address] [facility]. [facility] [phone] [address] [facility]. [phone] [address] [facility]. [facility] () Usted se mott hecho un examen mdico de control que le indica que no est en adina condicin que requiera tratamiento urgente en el Departamento de Emergencia. Un estudio ms profundo y el tratamiento de espinoza condicin pueden esperar sin ningn riesgo hasta que usted sea atendida/o en el consultorio de espinoza mdico o adina cl flakito. Es responsabilidad suya arreglar adina maxi para el seguimiento del sherry. MANEJO DE CONDICIONES NO URGENTES EN EL FUTURO 1) Si usted tiene un mdico de atencin primaria: Usted debera llamar a espinoza mdico de atencin primaria antes de venir al departamento de emergencia. Despus de las horas de consultorio, espinoza doctor o espinoza asociado/a est disponible por telfono. El mdico o enfermero de jose en el servicio telefnico puede asesorarle por marcial medio para atender el problema, o sherry contrario se puede programar adina maxi. 2) Si usted no tiene un mdico de atencin primaria: Llame al mdico o condado institucions de referencia que aparece abajo cathie las horas de consultorio para hacer adina maxi para que le vean. SI USTED NO PUEDE PAGAR PARA TANYA UN MEDICO puede ir a: [facility] [address] [place] [address] [facility] [address] [place] [address] [facility] [address] [place] [address] [address] [facility] [address] [place], [place] [id number] Additional Instructions: Llame al doctor MAANA y jesse adina MAXI PARA DENTRO DE 2-3 NUNN.Dgale a la secretaria que nosotros le instruimos hacer esta maxi. Mantenga espinoza maxi con el endocrinlogo el 2016 para mayor evaluacin y gestin Avise o llame si espinoza condicin se empeora antes de la maxi. Regresa aqui si peor o no mejor. DAVID VILLA PA-C Jul 21, 2017 16:37
[2017-07-28 16:12] LABS: TSH RECEPTOR ANTIBODY 1 (< OR = 16)
== END 2017-07-21 13:00 | disposition home or self-care (01) ==
LOC: FTE 07:48
DX: E07.9 Disorder of thyroid, unspecified (principal)
CPT/HCPCS: 36415; 80053; 81001; 83690; 84235; 84436; 84439; 84443; 84479; 85025; 93005; J7030; Z7502; Z7610

== ENCOUNTER 2017-09-03 22:54 | Emergency (ER) | payer SELFPAY ==
[~2017-09-03 22:54] MED LIST changes: +LEVO100T87 PO
== END 2017-09-03 23:13 | disposition left against medical advice (07) ==
LOC: FTE 22:54
DX: Z53.21 Procedure and treatment not carried out due to patient leaving prior to being seen by health care provider (principal)

== ENCOUNTER 2017-09-05 15:18 | Emergency (ER) | payer OTHER ==
[~2017-09-05] VITALS: Ht 160 cm; Wt 65.0 kg
[2017-09-05 15:25] VITALS: Ht 160 cm; Wt 65.0 kg
[2017-09-05] MEDS ORDERED: KETOROLAC 30 MG INJ IM STA (16:33)
--- NOTE | 2017-09-05 16:43 | ERD ---
ER Documentation Chief Complaint Chief Complaint Right shoulder pain HPI The patient is a 47-year-old female who presents the Emergency Department with complaint of right shoulder pain. The patient reports that her pain is mostly localized to the right shoulder, near the deltoid region, and is worse upon palpation, and with movement of the right upper extremity. She notes that due to the pain she has had difficulty washing her hair and in her teeth. She notes that her pain initially began yesterday, localized to the right shoulder and for a short time intermittently radiated down the right upper extremity. She took a dose of ibuprofen 800 mg, and approximately 30 minutes later her pain had resolved. However, upon waking up this morning her pain had returned, and therefore she took another dose of ibuprofen, with similar relief. By this afternoon the pain had once again returned, and therefore she decided to present to the emergency department for further evaluation. She believes that she is having intermittent associated swelling to the right shoulder as well. She denies any numbness or paresthesias of the distal extremities. Denies chest pain, palpitations, shortness of breath, dizziness, weakness, headache, fatigue, nausea, vomiting, fevers, sweats, chills. Denies any redness or warmth of the shoulder. Denies any prior shoulder surgeries. Denies any falls , injury or trauma to the extremity. Denies neck pain. Denies any other complaints at this time. ROS All systems reviewed and are negative except as per history of present illness. Medications Home Meds Active Scripts Prednisone* (Prednisone*) 20 Mg Tab, 40 MG PO DAILY for 5 Days, TAB Prov:JESSENIA CARDENAS PA-C 09/05/17 Naproxen* (Naprosyn*) 500 Mg Tablet, 500 MG PO BID Y for PAIN AND/OR INFLAMMATION, #30 TAB Prov:JESSENIA CARDENAS PA-C 09/05/17 Levothyroxine Sodium* (Levothyroxine Sodium*) 100 Mcg Tablet, 100 MCG PO BEFORE BREAKFAST, #30 TAB Prov:DAVID VLILA PA-C 07/21/17 Famotidine* (Pepcid*) 20 Mg Tablet, 20 MG PO BID for 4 Days, TAB Prov:RENETTA ALEXANDER NP 07/12/17 Cephalexin* (Keflex*) 500 Mg Capsule, 500 MG PO TID for 5 Days, CAP Prov:VANESSA SOLIZ PA-C 03/15/17 Fluconazole* (Diflucan*) 150 Mg Tablet, 150 MG PO ONCE, #2 TAB Prov:VANESSA SOLIZ PA-C 03/15/17 Cephalexin* (Keflex*) 500 Mg Capsule, 500 MG PO QID for 7 Days, CAP Prov:VANESSA SOLIZ PA-C 05/20/16 Phenazopyridine Hcl* (Pyridium*) 100 Mg Tab, 100 MG PO TID Y for URINARY PAIN, # 8 TAB Prov:VANESSA SOLIZ PA-C 05/20/16 Dicyclomine Hcl* (Bentyl*) 10 Mg Capsule, 10 MG PO QID, #30 CAP Prov:NAWAF GOMEZ PA-C 11/17/15 Polyethylene Glycol* (Miralax*) 17 Gm Powd.pack, 17 GM PO DAILY, #7 Prov:NAWAF GOMEZ PA-C 11/17/15 Docusate Sodium* (Colace*) 100 Mg Capsule, 100 MG PO TID, #30 CAP Prov:NAWAF GOMEZ PA-C 11/17/15 Hydrocodone Bit-Acetaminophen ([place]) 5-325 Mg Tablet, 1 TAB PO Q4H Y for PAIN, #14 TAB Prov:LESLIE MILLER MD 07/28/15 Ciprofloxacin Hcl* (Ciprofloxacin Hcl*) 500 Mg Tablet, 500 MG PO BID for 5 Days , TAB Prov:LESLIE MILLER MD 07/28/15 Phenazopyridine Hcl* (Pyridium*) 200 Mg Tab, 200 MG PO TID, #6 TAB Prov:LESLIE MILLER MD 07/28/15 Acetaminophen* (Acetaminophen*) 500 MG Extra Strength Tablet, 500 MG PO Q4H for PAIN, #30 TAB Prov:ANKUSH ARELLANO NP 03/07/15 Cyclobenzaprine Hcl* (Cyclobenzaprine Hcl*) 10 Mg Tablet, 5 MG PO TID Y for MUSCLE SPASMS, #30 TAB Prov:ANKUSH ARELLANO NP 03/07/15 Docusate Sodium* (Colace*) 100 Mg Capsule, 100 MG PO BID, #60 Prov:ANKUSH ARELLANO NP 03/07/15 Hydrocortisone Acetate* (Anusol-HC*) 25 Mg/Supp.rect Supp.rect, 1 SUPP AL BID Y for HEMORROID PAIN/ITCHING, #20 SUPP.RECT Prov:ANKUSH ARELLANO ABIODUN Bañuelos NP 03/07/15 Allergies Allergies: Coded Allergies: aspirin (Verified Allergy, Mild, 04/02/17) PMhx/Soc History of Surgery: Yes (APPENDECTOMY, THYROIDECTOMY 07/14) Anesthesia Reaction: No Hx Neurological Disorder: No Hx Respiratory Disorders: No Hx Cardiac Disorders: No Hx Psychiatric Problems: No Hx Miscellaneous Medical Probl: No Hx Alcohol Use: No Hx Substance Use: No Hx Tobacco Use: No Physical Exam Vitals Vital Signs Date Time Temp Pulse Resp B/P Pulse Ox O2 Delivery O2 Flow Rate FiO2 09/05/17 15:25 98.1 97 18 172/78 99 Physical Exam GENERAL: Well-developed, well-nourished, female, in no acute distress. HEENT: Head is normocephalic, atraumatic. No scleral pallor or icterus. Pupils equal, round and reactive to light. Extraocular movements intact. Conjunctiva pink. Moist mucous membranes. NECK: Supple. No masses, no tenderness, no lymphadenopathy. Trachea midline. No nuchal rigidity. No meningismus. Negative Spurling maneuver. RESPIRATORY: Lungs are clear to auscultation bilaterally. No rales, rhonchi or wheezing. Equal breath sounds. Normal expiratory effort. CARDIOVASCULAR: Regular rate and rhythm. S1 and S2 normal. No murmurs, rubs, or gallops. Distal pulses are palpable, 2+ bilaterally. Capillary refill is less than 2 seconds. GASTROINTESTINAL: Abdomen is soft, non-tender, and non-distended. No guarding, no rebound tenderness. Normal bowel sounds. No abdominal bruits. No gross peritonitis. Negative Rovsings. Negative [place]. No tenderness at McBurneys point. FLANK: No CVA tenderness. BACK: No midline tenderness. EXTREMITIES: Inspection of the right shoulder reveals no deformity and fairly developed musculature without any atrophy. No sagging of the shoulder. No obvious deformity. Tenderness to palpation over the right deltoid region and the bicipital groove. Active range of motion shows moderate pain with range of motion that appears to be worse with extension and internal rotation against resistance. Passive range of motion shows mild pain. Positive Neer sign. Positive Hawkin's sign. Negative drop arm test. Examination of the biceps reveals no pain with resisted flexion or pronation. Negative Yergason sign. Negative anterior apprehension test. Negative sulcus sign. Axillary, radial, median and ulnar nerve distribution grossly intact, both motor and sensory. Normal skin perfusion. Other joints nontender. No joint effusion. Full range of motion of the upper and lower extremities. Muscle tone is normal. No focal swelling or erythema. No clubbing, cyanosis or edema. Compartments are soft. No ecchymosis. No crepitus. No step offs. Normal strength. Distal pulses are palpable, 2+ bilaterally. Capillary refill is less than 2 seconds. NEUROLOGIC: The patient is alert, awake, and oriented x 3. No focal neurologic deficits. Motor normal in all extremities. Sensation grossly intact. INTEGUMENT: Skin is intact. Warm and dry. No rashes, no petechiae present. Normal turgor. PSYCHIATRIC: Cooperative. Appropriate. Results 24 hrs Current Medications Medications (Trade) Dose Ordered Sig/Pardeep Route PRN Reason Start Time Stop Time Status Last Admin Dose Admin Ketorolac Tromethamine (Toradol) 30 mg ONCE STAT IM 09/05/17 16:33 09/05/17 16:35 DC 09/05/17 17:07 Procedures/MDM DIAGNOSTIC TESTS AND INTERPRETATION: PROCEDURE: XR Cervical Spine. CLINICAL INDICATION: Right upper extremity pain TECHNIQUE: AP, lateral and odontoid views of the cervical spine were performed. The images were reviewed on a PACS workstation. COMPARISON: CT 07/12/2017 FINDINGS: There is normal alignment of the cervical spine, which is visualized from the level of C1 through C7. Vertebral body heights are maintained. There is minimal disc space narrowing at C5-C6, with mild to moderate appearing posterior osteophyte formation. There is mild appearing facet hypertrophy through the mid cervical spine. There is no evidence of fracture or dislocation. The atlantoaxial articulation appears grossly unremarkable. Assessment of the dens and C1 is limited by positioning on the open-mouth view. There is no prevertebral soft tissue swelling.. There is elongation of the bilateral styloid processes. IMPRESSION: 1. Degenerative disc change at C5-C6, with mild to moderate appearing posterior osteophytes. 2. Mild facet hypertrophy through the mid cervical spine. 3. Elongation of the bilateral styloid processes, which may occasionally produce Gila syndrome. .Kali Sanchez MD, MD Date Time Electronically viewed and signed by .Kali Sanchez MD, on 09/05/2017 17:28 PROCEDURE: XR Shoulder. CLINICAL INDICATION: Right shoulder pain. TECHNIQUE: 4 views of the right shoulder. COMPARISON: None available FINDINGS: There is no acute fracture or dislocation. The joint spaces are preserved. There are calcifications adjacent to superolateral humeral head. The coracoclavicular interval is normal. The visualized right lung is clear. IMPRESSION: 1. No acute fracture or dislocation of the right shoulder. 2. Calcifications adjacent to the superolateral humeral head, possibly representing calcific tendonitis of the rotator cuff. .Pio Jeffries MD, MD Date Time Electronically viewed and signed by .Pio Jeffries MD, MD on 09/05/2017 17:30 PROCEDURE: US right upper extremity venous Doppler study CLINICAL INDICATION: PAIN C/O PAIN, SWELLING TECHNIQUE: Multiple sonographic images of the right upper extremity venous system was obtained utilizing grayscale, color-flow, compressive sonography and doppler imaging with augmentation. The images were reviewed on a PACS workstation. COMPARISON: None. FINDINGS:There is no evidence for deep venous thrombosis of the veins of the upper extremity. The veins were compressible with normal flow seen. IMPRESSION:No evidence for venous thrombus of the right upper extremity. Physician Nirmal Date Time Electronically viewed and signed by Physician Nirmal on 09/05/2017 18 :45 EKG Reviewed and interpreted by: Dr. Miller EKG Interpretation: Normal sinus rhythm with sinus arrhythmia. 74 bpm. Normal axis. No ectopy. No ST-segment elevations/depressions. MEDICAL DECISION MAKING: This is a 47-year-old female presenting to the emergency department with right shoulder pain that yesterday. The patient had tenderness to palpation over the right deltoid region and bicipital groove, with a positive Neer sign and Coulter Karsten tests. Otherwise, negative lift off test and drop arm test. Her vital signs were stable, and she showed no evidence of toxicity. The differential diagnosis includes, but is not limited to, contusion, sprain, rotator cuff injury, strain, humeral fracture, clavicle fracture, scapular fracture, acromion fracture, shoulder separation, shoulder dislocation, arthritis, necrotizing fasciitis, necrotizing myositis, pneumothorax, biceps tendinitis, subacromial bursitis, adhesive capsulitis, AC separation, rheumatoid arthritis, septic arthritis, avascular necrosis, polymyalgia rheumatica, thoracic outlet syndrome, brachial plexus neuropathy, neoplastic disease. There are no imaging findings to suggest fracture, dislocation or subluxation. Patient is breathing normally on room air with no shortness of breath, no tachypnea and a normal O2 saturation. Doubt pneumothorax. No pain out of proportion to examination, no fevers, no constitutional symptoms, no crepitus, no skip lesions or rash, no erythema or restricted range of motion to suggest necrotizing fasciitis/myositis, avascular necrosis, septic arthritis. Range of motion appears to be intact, though with a positive Neers and Coulter sign, indicating possible impingement. However, patient will need further outpatient evaluation and follow up with possible MRI for confirmation. Distal extremity is neurovascularly intact, with 2+ pulses that are equal bilaterally, and capillary refill less than 2 seconds. No evidence of neurovascular compromise. X-ray imaging revealed findings of calcifications adjacent to the superolateral humeral head, possibly representing calcific tendonitis of the rotator cuff. After rest and administration of Toradol, the patient reports no new complaints and decreased pain. Upon my review and interpretation of the patient's presentation and overall ER course, I believe that the patient's symptoms are most consistent with shoulder pain, internal derangement of the right shoulder and likely impingement syndrome. Her symptoms may be due to an underlying rotator cuff injury, however she will need further workup and evaluation for confirmation of such a diagnosis. The patient is in stable condition and therefore can be discharged home with a prescription for Naproxen and Prednisone, and strict return precautions for signs of deteriorating or worsening condition. The importance of icing, elevating, resting and working on range of motion was discussed with the patient. The patient is instructed to follow up with her primary care provider within 2-3 days for reevaluation and further management or return to the ER sooner for any worsening symptoms. I shared all diagnostic imaging studies with the patient at length and in great detail and the patient verbally understands and agrees with the plan for further observation and care as an outpatient. At the time of discharge, all questions were answered. Departure Diagnosis: Primary Impression: Impingement syndrome of right shoulder Additional Impression: Right shoulder pain Chronicity: acute Qualified Code: M25.511 - Acute pain of right shoulder Condition: Stable Patient Instructions: Shoulder Impingement Syndrome, What Is Impingement Syndrome? Additional Instructions: Llame al doctor MAANA y jesse adina MAXI PARA DENTRO DE 1-2 NUNN.Dgale a la secretaria que nosotros le instruimos hacer esta maxi.Avise o llame si espinoza condicin se empeora antes de la maxi. Regresa aqui si peor o no mejor. JESSENIA CARDENAS PA-C Sep 05, 2017 16:42
--- NOTE | 2017-09-05 17:28 | RADRPT ---
PROCEDURE: XR Cervical Spine. CLINICAL INDICATION: Right upper extremity pain TECHNIQUE: AP, lateral and odontoid views of the cervical spine were performed. The images were re viewed on a PACS workstation. COMPARISON: CT 07/12/2017 FINDINGS: There is normal alignment of the cervical spine, which is visualized from the level of C1 through C7 . Vertebral body heights are maintained. There is minimal disc space narrowing at C5-C6, with mild to moderate appearing posterior osteophyte formation. There is mild appearing facet hypertrophy thr ough the mid cervical spine. There is no evidence of fracture or dislocation. The atlantoaxial articulation appears grossly unr emarkable. Assessment of the dens and C1 is limited by positioning on the open-mouth view. There is no prevertebral soft tissue swelling.. There is elongation of the bilateral styloid process es. IMPRESSION: 1. Degenerative disc change at C5-C6, with mild to moderate appearing posterior osteophytes. 2. Mild facet hypertrophy through the mid cervical spine. 3. Elongation of the bilateral styloid processes, which may occasionally produce Heidrick syndrome. RPTAT: HBST . .Kali Sanchez MD, Date Time Electronically viewed and signed by .Kali Sanchez MD, MD on 09/05/2017 17:28 .T/
--- NOTE | 2017-09-05 17:31 | RADRPT ---
PROCEDURE: XR Shoulder. CLINICAL INDICATION: Right shoulder pain. TECHNIQUE: 4 views of the right shoulder. COMPARISON: None available FINDINGS: There is no acute fracture or dislocation. The joint spaces are preserved. There are calcifications adjacent to superolateral humeral head. The coracoclavicular interval is normal. The visualized ri ght lung is clear. IMPRESSION: 1. No acute fracture or dislocation of the right shoulder. 2. Calcifications adjacent to the superolateral humeral head, possibly representing calcific tendon itis of the rotator cuff. RPTAT: HTAR .Pio Jeffries MD, MD Date Time Electronically viewed and signed by .Pio Jeffries MD, on 09/05/2017 17:30 .R/
--- NOTE | 2017-09-05 18:45 | RADRPT ---
PROCEDURE: US right upper extremity venous Doppler study CLINICAL INDICATION: PAIN C/O PAIN, SWELLING TECHNIQUE: Multiple sonographic images of the right upper extremity venous system was obtained ut ilizing grayscale, color-flow, compressive sonography and doppler imaging with augmentation. The im ages were reviewed on a PACS workstation. COMPARISON: None. FINDINGS: There is no evidence for deep venous thrombosis of the veins of the upper extremity. The veins were compressible with normal flow seen. IMPRESSION: No evidence for venous thrombus of the right upper extremity. RPTAT: HRSR Physician Nirmal Date Time Electronically viewed and signed by Physician Nirmal on 09/05/2017 18:45 RR/
[2017-09-05] MEDS ORDERED: NAPR-260 PO (19:05)
[2017-09-05] MEDS ORDERED: PRED20TA PO (19:05)
== END 2017-09-05 19:16 | disposition home or self-care (01) ==
LOC: FTE 15:18
DX: M75.41 Impingement syndrome of right shoulder (principal); R07.9 Chest pain, unspecified
CPT/HCPCS: 72040; 73030; 93005; 93971; 96372; J1885; Z7502

== ENCOUNTER 2017-09-28 19:13 | Emergency (ER) | END 2017-09-29 03:10 | disposition left against medical advice (07) ==

== ENCOUNTER 2017-12-06 16:53 | Emergency (ER) | END 2017-12-06 23:10 | disposition home or self-care (01) ==

== ENCOUNTER 2018-04-14 14:38 | Emergency (ER) | END 2018-04-14 20:15 | disposition home or self-care (01) ==

== ENCOUNTER 2018-06-21 16:19 | Emergency (ER) | END 2018-06-21 21:52 | disposition home or self-care (01) ==

== ENCOUNTER 2018-12-31 17:21 | Emergency (ER) | payer OTHER ==
[~2018-12-31] VITALS: Ht 167.6 cm; Wt 68.5 kg
[~2018-12-31 17:21] MED LIST changes: -ACET-141 PO; -CEPH-443 PO; +CHOL200056 PO; -CIPR500T4 PO; -CYCL-319 PO; -DICY10CA60 PO; -DOCU-144 PO; -FAMO-96 PO; -FLUC150T17 PO; +FURO20TA3 PO; +HYDR-3980 PO; -HYDR-906 PO; -HYDR25SU24 PR; -LEVO100T87 PO; +LEVO125T7 PO; -PHEN-537 PO; -PHEN-538 PO; -POLY17PO6 PO
[2018-12-31 17:30] VITALS: Ht 167.6 cm; Wt 68.5 kg
[2018-12-31] MEDS ORDERED: KETOROLAC 30 MG INJ IM STA (18:58)
[2018-12-31] MEDS ORDERED: ALPRAZOLAM 0.25 MG TAB PO ONE (19:00)
--- NOTE | 2018-12-31 19:06 | ERD ---
ER Documentation Chief Complaint Chief Complaint sorethroat, sob, & body aches x2 mths, dx:lupus 3 mths ago HPI 48-year-old woman complains of sore throat and pain and paresthesias to both hands, she has a history of lupus and is worried about the cause of these 2 seemingly unrelated symptoms, she states she has had both a sore throat and hand pain for the last 1 month. She denies chest pain or shortness of breath, no fevers or chills, no weight loss, no vomiting or diarrhea, no blood per rectum or melena. Pain in the hand is nonexertional nonradiating and is without obvious precipitating or alleviating factors. The patient's sore throat is constant and daily for about 1 week. ROS All systems reviewed and are negative except as per history of present illness. Medications Home Meds Active Scripts Ibuprofen* (Motrin*) 600 Mg Tab, 600 MG PO Q8 PRN for PAIN AND/OR INFLAMMATION, #30 TAB Prov:JASON CRAWFORD MD 12/31/18 Hydrocodone/Acetaminophen ([place] 10-325 Tablet) 1 Each Tablet, 1 TAB PO Q6H PRN for PAIN, #20 TAB Prov:MANDY YO DO 06/21/18 Hydrocodone/Acetaminophen ([place] 10-325 Tablet) 1 Each Tablet, 1 TAB PO Q6H PRN for PAIN, #20 TAB Prov:MANDY YO DO 04/14/18 Reported Medications Cholecalciferol (Vitamin D3) (Vitamin D-3) 2,000 Unit Tablet, 2000 UNIT PO DAILY, TAB 04/14/18 Furosemide* (Furosemide*) 20 Mg Tablet, 20 MG PO BID, #30 TAB 04/14/18 Levothyroxine Sodium* (Levothyroxine Sodium*) 125 Mcg Tablet, 125 MCG PO BEFORE BREAKFAST, #30 TAB 04/14/18 Allergies Allergies: Coded Allergies: aspirin (Verified Allergy, Mild, 04/14/18) PMhx/Soc History of Surgery: Yes (Thyroidectomy) Anesthesia Reaction: No Hx Neurological Disorder: No Hx Respiratory Disorders: No Hx Cardiac Disorders: No Hx Psychiatric Problems: No Hx Miscellaneous Medical Probl: Yes ( [place] THYROID w/ last radiation 02/2018, lupus) Hx Alcohol Use: No Hx Substance Use: No Hx Tobacco Use: No Smoking Status: Never smoker Fmx Family History: No diabetes Physical Exam Vitals Vital Signs Date Temp Pulse Resp B/P (MAP) Pulse Ox O2 O2 Flow FiO2 Time Delivery Rate 12/31/18 98.4 78 18 138/90 100 Room Air 20:16 (106) 12/31/18 99.6 101 19 171/102 100 17:30 (125) Physical Exam Const: No acute distress, anxious, afebrile Head: Atraumatic Eyes: Normal Conjunctiva ENT: Normal External Ears, Nose and Mouth. Neck: Full range of motion. No meningismus. Resp: Clear to auscultation bilaterally Cardio: Regular rate and rhythm, no murmurs Abd: Soft, non tender, non distended. Normal bowel sounds Skin: No petechiae or rashes Back: No midline or flank tenderness Ext: No cyanosis, or edema Neur: Awake and alert x3, no focal deficits or facial asymmetry Psych: Moderately anxious Results 24 hrs Laboratory Tests Test 12/31/18 18:55 12/31/18 19:03 Urine Color STRAW Urine Clarity CLEAR Urine pH 6.0 Urine Specific [place] 1.002 Urine Ketones NEGATIVE mg/dL Urine Nitrite NEGATIVE mg/dL Urine Bilirubin NEGATIVE mg/dL Urine Urobilinogen NEGATIVE mg/dL Urine Leukocyte Esterase NEGATIVE Martin/ul Urine Microscopic RBC 0 /HPF Urine Microscopic WBC 0 /HPF Urine Hemoglobin 1+ mg/dL Urine Glucose NEGATIVE mg/dL Urine Total Protein NEGATIVE mg/dl POC Beta HCG, Qualitative NEGATIVE Current Medications Medications Dose Sig/Pardeep Start Time Status Last (Trade) Ordered Route PRN Stop Time Admin Dose Reason Admin Ketorolac 30 mg ONCE STAT 12/31/18 DC 12/31/18 Tromethamine IM 18:58 12/31/18 19:09 (Toradol) 19:00 Alprazolam 0.5 mg ONCE ONCE 12/31/18 DC 12/31/18 (Xanax) PO 19:00 12/31/18 19:09 19:01 Procedures/MDM EKG was performed, read by me revealed a normal sinus rhythm at 93 bpm, normal axis, narrow QRS complex, no concerning ST elevations or depressions noted Chest X-ray 1V Interpreted by me: Soft Tissue: No acute abnormalities Bones: No acute abnormalities Mediastinum/Cardiac Silhouette/Lungs: No acute abnormalities Administered Toradol 30 mg IM x1 and alprazolam 0.5 mg p.o. Urinalysis was negative for infection, negative for . Differential diagnoses considered, included but not limited to acute coronary syndrome, pulmonary embolism, aortic dissection, abdominal aortic aneurysm, sepsis, stroke, meningitis, encephalitis, pneumonia, appendicitis, cholecystitis, bowel obstruction, pyelonephritis, nephrolithiasis, cystitis, as well as metabolic, hematologic, and electrolyte abnormalities. As well as abscess, cellulitis, fractures, and dislocations. Patient feels much better at this time, and vital signs are normal, symptoms have improved. I did give strict instructions to return to the ED if symptoms continue or worsen, patient will otherwise follow-up with primary care physician. Patient understood instructions and agreed to plan. Disclaimer: Inadvertent spelling and grammatical errors are likely due to EHR/dictation software use and do not reflect on the overall quality of patient care. Also, please note that the electronic time recorded on this note does not necessarily reflect the actual time of the patient encounter. Departure Diagnosis: Primary Impression: Throat pain Additional Impressions: Lupus Anxiety in acute stress reaction Condition: Good JASON CRAWFORD MD Dec 31, 2018 19:06
[2018-12-31] MEDS ORDERED: IBUP-1542 PO (20:03)
[2018-12-31 20:16] VITALS: BP 138/90; PULSE 78; RESP 18
== END 2018-12-31 20:25 | disposition home or self-care (01) ==
LOC: FTE 17:21
DX: R07.0 Pain in throat (principal); F43.0 Acute stress reaction; L93.2 Other local lupus erythematosus; Z85.850 Personal history of malignant neoplasm of thyroid
CPT/HCPCS: 71045; 81001; 81025; J1885; Z7610; 96372

== ENCOUNTER 2019-06-05 14:49 | Emergency (ER) | payer OTHER ==
[~2019-06-05] VITALS: Ht 160 cm; Wt 68.1 kg
[~2019-06-05 14:49] MED LIST changes: +HYDR200T39 ORAL; +IBUP-1542 PO
[2019-06-05 14:57] VITALS: Ht 160 cm; Wt 68.1 kg
[2019-06-05] MEDS ORDERED: PROCHLORPERAZINE 10 MG INJ IV STA (15:05)
[2019-06-05] MEDS ORDERED: DIPHENHYDRAMINE 50 MG INJ IV STA (15:05)
[2019-06-05] MEDS ORDERED: SOD CHLORIDE 0.9% 1,000 ML IV STA (15:05)
[2019-06-05] MEDS ORDERED: ACETAMINOPHEN 325 MG TAB PO STA (15:05)
[2019-06-05] MEDS ORDERED: DEXAMETHASONE 10 MG/ML 1 ML INJ IV ONE (15:30)
[2019-06-05 16:23] VITALS: BP 155/108; PULSE 85; RESP 18
== END 2019-06-05 16:24 | disposition home or self-care (01) ==
LOC: E/R 14:49
DX: R51 Headache (principal); Z85.850 Personal history of malignant neoplasm of thyroid
CPT/HCPCS: 96374; 96375; J0780; J1100; J1200; J7030; Z7502; Z7610